=== PATIENT | male | born 1970 | race Caucasian/White ===

== ENCOUNTER 2022-09-01 10:34 | Emergency (ER) | payer BC ==
[2022-09-01 11:27] LABS: ESTIMATED GFR 51 mL/min (>60)
[2022-09-01 11:30] LABS: BASE EXCESS VENOUS,POC 1 mmol/L (-2 - 3+); PCO2 VENOUS,POC 35 mmHg (41-51); PH VENOUS,POC 7.45 pH Units (7.32-7.43)
[2022-09-01] MEDS: Acetaminophen 500 MG Tab PO ONE (11:35)
[2022-09-01] MEDS: Albuterol/Ipratropium 3.0-0.5 MG/3 ML Neb Soln NEB ONE (12:00)
[2022-09-01] MEDS: Sodium Chloride 0.9% 10 ML Syringe FLUSH PRN (12:15)
[2022-09-01] MEDS: Sodium Chloride 0.9% 1,000 ML IV ONE (12:18)
[2022-09-01] MEDS: Levofloxacin/Dextrose 5%-Water 500 MG in Premix Bag 1 BAG IV ONE (12:20)
[2022-09-01 21:27] VITALS: BP 124/80; PULSE 93
== END 2022-09-01 14:23 | disposition home or self-care (01) ==
LOC: FB.ED 10:34
DX: J18.9 Pneumonia, unspecified organism (principal); N39.0 Urinary tract infection, site not specified; E86.0 Dehydration; I10 Essential (primary) hypertension; Z88.8 Allergy status to other drugs, medicaments and biological substances; Z88.0 Allergy status to penicillin; Z79.899 Other long term (current) drug therapy; Z90.49 Acquired absence of other specified parts of digestive tract
CPT/HCPCS: 36415; 80053; 81001; 83605; 83880; 84484; 85025; 86140; 87040; 93005; 94640; 96365; 99285-25; A9270-GY; J1956; J3490; J7030; J7620

== ENCOUNTER 2022-09-28 08:27 | Day surgery (SDC) | payer BC ==
[2022-09-28] MEDS ORDERED: Lidocaine 2% 5 ML SDV INJECT ONE (08:28)
[2022-09-28] MEDS ORDERED: Propofol 200 MG/20 ML SDV IV ONE (08:28)
[2022-09-28] MEDS ORDERED: Lactated Ringers 1,000 ML IV SCH (08:30)
[2022-09-28] MEDS ORDERED: Sodium Chloride 0.9% 10 ML Syringe FLUSH PRN (08:30)
[2022-09-28] MEDS ORDERED: Labetalol 20 MG/4 ML Syringe IVPUSH ONE (09:45)
[2022-09-28 11:23] VITALS: BP 144/98; PULSE 71
== END 2022-09-28 11:05 | disposition home or self-care (01) ==
LOC: FB.SDS 08:27
PROVIDERS: ATTEND Surgery
DX: K29.40 Chronic atrophic gastritis without bleeding (principal); K25.9 Gastric ulcer, unspecified as acute or chronic, without hemorrhage or perforation; K44.9 Diaphragmatic hernia without obstruction or gangrene; K31.89 Other diseases of stomach and duodenum; J44.9 Chronic obstructive pulmonary disease, unspecified; I10 Essential (primary) hypertension; Z79.899 Other long term (current) drug therapy; Z88.0 Allergy status to penicillin; Z88.8 Allergy status to other drugs, medicaments and biological substances; Z90.49 Acquired absence of other specified parts of digestive tract; Z98.890 Other specified postprocedural states
CPT/HCPCS: 00731; 43239; 88305; 88342; J2704; J3490; J7120

== ENCOUNTER 2023-08-16 10:47 | Emergency (ER) | payer BC ==
[2023-08-16 11:21] LABS: BASOPHILS PERCENT AUTO 0.4 % (0.3-3.8); EOSINOPHILS ABSOLUTE AUTO 0.2 x10-3/uL (0.0-0.6); EOSINOPHILS PERCENT AUTO 3.3 % (0.1-6.8); HEMATOCRIT 44.4 % (38.3-50.1); HEMOGLOBIN 15.3 g/dL (12.9-17.7); LYMPHOCYTES ABSOLUTE AUTO 0.9 x10-3/uL (0.5-4.5); LYMPHOCYTES PERCENT AUTO 12.5 % (15.8-45.3); MEAN CORPUSCULAR HEMOGLOBIN 33.1 pg (27.0-33.3); MEAN CORPUSCULAR HGB CONC 34.6 g/dL (28.7-35.3); MEAN CORPUSCULAR VOLUME 95.9 fL (80.8-98.7); MEAN PLATELET VOLUME 7.1 fL (6.7-11.0); MONOCYTES ABSOLUTE AUTO 0.5 x10-3/uL (0.0-1.2); MONOCYTES PERCENT AUTO 6.8 % (5.5-15.2); NEUTROPHILS ABSOLUTE AUTO 5.3 x10-3/uL (1.7-6.9); PLATELET COUNT,PLT 198 x10(3)uL (117-477); RED BLOOD CELL COUNT 4.63 x10(6)uL (3.90-5.90); RED CELL DISTRIBUTION WIDTH 13.9 % (12.4-15.0); WHITE BLOOD CELL COUNT,WBC 6.9 x10-3/uL (3.2-10.1)
[2023-08-16 11:29] LABS: ALANINE AMINOTRANSFERASE,ALT 32 U/L (12-36); ALBUMIN 3.6 g/dL (3.5-5.2); ALKALINE PHOSPHATASE 122 IU/L (56-112); ASPARTATE AMNIOTRANSFERASE,AST 23 IU/L (5-25); BILIRUBIN TOTAL 1.1 mg/dL (0.1-1.3); BLOOD UREA NITROGEN,BUN 23 mg/dL (7-18); BUN/CREATININE RATIO 20.9 (9-20); CALCIUM 8.9 mg/dL (8.6-10.2); CARBON DIOXIDE,CO2 32 mmol/L (21-32); CHLORIDE,CL 101 mmol/L (100-110); CREATININE 1.1 mg/dL (0.70-1.30); ESTIMATED GFR 79 mL/min (>60); GLUCOSE RANDOM 97 mg/dL (80-116); PROTEIN TOTAL,TP 7.3 g/dL (6.0-8.0); SODIUM,NA 139 mmol/L (135-145)
[2023-08-16 11:38] LABS: TROPONIN I 74.5 pg/mL (4.0-60.3)
[2023-08-16] MEDS ORDERED: Sodium Chloride 0.9% 10 ML Syringe FLUSH PRN (11:43)
[2023-08-16] MEDS ORDERED: Metoprolol Tartrate 25 MG Tab PO ONE (11:43)
[2023-08-16] MEDS: Nitroglycerin 0.4 MG Tab.SL SL PRN ×2 (11:53→12:27)
[2023-08-16] MEDS ORDERED: fentaNYL 100 MCG/2 ML SDV IVPUSH ONE (12:26)
[2023-08-16 12:31] VITALS: BP 124/88; PULSE 72
[2023-08-16 12:34] LABS: INR 0.99 (1.00-1.24); PROTHROMBIN TIME 10.2 sec (9.0-11.1); PTT,PARTIAL THROMBOPLSTIN TIME 24.7 SECONDS (24.4-33.2)
[2023-08-16] MEDS ORDERED: Morphine 2 MG/ML SYRINGE IVPUSH ONE ×2 (13:06→17:13)
[2023-08-16] MEDS ORDERED: Heparin Sodium 5,000 Units/ML Vial IVPUSH ONE (13:55)
[2023-08-16] MEDS ORDERED: Heparin Sodium/0.45% NaCl 500 ML IV SCH (14:00)
[2023-08-16] MEDS ORDERED: Nitroglycerin/D5W 25 MG/250 ML BOTTLE IV SCH (14:00)
== END 2023-08-16 17:30 ==
LOC: FB.ED 10:47
DX: R07.89 Other chest pain (principal); I10 Essential (primary) hypertension; E78.5 Hyperlipidemia, unspecified; J44.9 Chronic obstructive pulmonary disease, unspecified; K21.9 Gastro-esophageal reflux disease without esophagitis; Z86.16 Personal history of COVID-19; Z88.8 Allergy status to other drugs, medicaments and biological substances; Z88.0 Allergy status to penicillin; Z79.899 Other long term (current) drug therapy
CPT/HCPCS: 36415; 71045; 80053; 83880; 84484; 85025; 85379; 85610; 85730; 93005; 93010; 96365; 96366; 96375; 96376; 99284; 99285; A9270; J1644; J2270; J3010; J3490